=== PATIENT | female | born 1975 | race Caucasian/White ===

== ENCOUNTER 2021-07-22 12:51 | Emergency (ER) | payer SELFPAY ==
[~2021-07-22] VITALS: Ht 154.9 cm; Wt 62.0 kg
[2021-07-22 15:41] LABS: BASOPHILS % 0.5 % (0.0-2.0); EOSINOPHILS % 3.5 % (0.0-5.0); HEMATOCRIT. 37.3 % (36.0-48.0); HEMOGLOBIN. 12.6 g/dL (12.0-16.0); LYMPHOCYTES % 31.2 % (20.0-50.0); MEAN CORPUSCULAR HEMOGLOBIN 29.5 pg (28.0-32.0); MEAN CORPUSCULAR VOLUME 87.4 fL (81.0-99.0); MEAN PLATELET VOLUME 8.1 fl (7.4-10.4); MONOCYTES % 6.8 % (2.0-8.0); PLATELET 397 x1000/uL (130-400); RED BLOOD CELL COUNT 4.27 mill/uL (4.2-5.4); RED CELL DISTRIBUTION WIDTH 13.9 % (11.6-14.6)
[2021-07-22 15:44] LABS: CHLORIDE 110 mEq/L (98-107)
[2021-07-22 15:54] LABS: B-HCG QUANTITATIVE < 1 mIU/mL (<3)
[2021-07-22] MEDS ORDERED: SIME80TA15 MT (16:17)
[2021-07-22 16:45] VITALS: BP 140/70
== END 2021-07-22 16:45 | disposition home or self-care (01) ==
LOC: ER 12:51
DX: R14.0 Abdominal distension (gaseous) (principal); R03.0 Elevated blood-pressure reading, without diagnosis of hypertension
CPT/HCPCS: 36415; 76801; 80053; 81025; 84702; 85025; 99284